=== PATIENT | male | born 1970 | race Two or more races ===

== ENCOUNTER 2020-03-27 03:07 | Emergency (ER) | payer MEDICAID ==
[~2020-03-27] VITALS: Ht 165.1 cm; Wt 68.0 kg
[2020-03-27] MEDS ORDERED: ACETAMINOPHEN 500 MG TAB PO ONE (07:45)
[2020-03-27] MEDS ORDERED: predniSONE 20 MG TAB PO ONE (07:45)
[2020-03-27 08:48] VITALS: BP 122/82
== END 2020-03-27 08:54 | disposition home or self-care (01) ==
LOC: ER 03:09
DX: S93.401A Sprain of unspecified ligament of right ankle, initial encounter (principal); X50.1XXA Overexertion from prolonged static or awkward postures, initial encounter; Y93.67 Activity, basketball; Y92.89 Other specified places as the place of occurrence of the external cause; Y99.8 Other external cause status
CPT/HCPCS: 73610; 99283; J7512